=== PATIENT | female | born 1995 | race African-American/Black ===

== ENCOUNTER → 2023-07-10 14:44 | Outpatient (BNVA) | payer SELFPAY | PROVIDERS: Visit Provider Physician Assistant | DX: S60.221A Contusion of right hand, initial encounter (principal); W22.01XA Walked into wall, initial encounter | CPT/HCPCS: 73130; 99204 ==

== ENCOUNTER → 2023-07-12 13:22 | Outpatient (BNVA) | payer OTHER, SELFPAY | PROVIDERS: Visit Provider Physician Assistant | DX: S60.221A Contusion of right hand, initial encounter (principal); W22.01XA Walked into wall, initial encounter | CPT/HCPCS: 99213 ==